=== PATIENT | female | born 1975 | race Caucasian/White ===

== ENCOUNTER 2019-07-04 08:34 | Inpatient (IN) ==
--- NOTE | 2019-06-18 12:24 | PAT Medication Instructions ---
Medication Instructions Date of Service June 18, 2019 Home Medications celecoxib [Celebrex] 200 mg PO QPM estradiol 1 patch TOPICAL 2XWK fexofenadine [Lillie Allergy] 180 mg PO QAM fluticasone propion-salmeterol [Advair Diskus] 1 inh INHALATION BID PRN fluticasone propionate [Flonase Allergy Relief] 2 spray INTRANASAL BID furosemide [Lasix] 20 mg PO QAM metoprolol succinate [Toprol XL] 25 mg PO QPM montelukast [Singulair] 25 mg PO QAM multivitamin 2 tab PO QAM omeprazole 20 mg PO BID sulfadiazine 1,500 mg PO TID Continue as directed estradiol 1 patch TOPICAL 2XWK (avoid placement over surgery site area prior to surgery) sulfadiazine 1,500 mg PO TID ASK your surgeon for instructions celecoxib [Celebrex] 200 mg PO QPM DO NOT take the morning of surgery fexofenadine [Lillie Allergy] 180 mg PO QAM furosemide [Lasix] 20 mg PO QAM montelukast [Singulair] 25 mg PO QAM multivitamin 2 tab PO QAM Take morning of surgery With a small sip of water, OTHERWISE NOTHING TO EAT OR DRINK AFTER MIDNIGHT: fluticasone propion-salmeterol [Advair Diskus] 1 inh INHALATION BID PRN (if needed) fluticasone propionate [Flonase Allergy Relief] 2 spray INTRANASAL BID omeprazole 20 mg PO BID Take evening before surgery fluticasone propion-salmeterol [Advair Diskus] 1 inh INHALATION BID PRN (if needed) fluticasone propionate [Flonase Allergy Relief] 2 spray INTRANASAL BID metoprolol succinate [Toprol XL] 25 mg PO QPM omeprazole 20 mg PO BID sulfadiazine 1,500 mg PO TID Other Notes If you have any questions please call us at [phone] or [phone] or [phone] or [phone]
--- NOTE | 2019-06-19 10:27 | Anesthesiology Consultation ---
Date of Service June 19, 2019 Assessment & Plan (1) Encounter for pre-operative examination: Chart Review Chart Review: Acceptable Risk for Surgery and Patient seen in Pre Admission Testing Teaching & Discussion Instructed NPO after midnight before surgery, except medications with 15 cc of water. Medication instructions provided according to the PAT guidelines. History Surgery Operation Date: 07/04/19 11:35 Proposed Procedures p L5-S1 Decompression Fusion, Spinal Cord Monitoring - Ari Cross DO Height/Weight Height: 5 ft 1.5 in Weight: 123.3 kg Allergies Allergy/AdvReac Type Severity Reaction Status Date / Time lisinopril Allergy Unknown Rash Verified 06/13/19 08:05 abatacept [From Orencia] AdvReac Unknown Headache Verified 06/13/19 08:05 amlodipine [From Norvasc] AdvReac Unknown legs Verified 06/13/19 08:05 swelled Medications Home Medications Medication Instructions Recorded Confirmed Last Taken celecoxib [Celebrex] 200 mg PO QPM 06/13/19 06/13/19 Unknown estradiol 1 patch TOPICAL 2XWK 06/13/19 06/13/19 Unknown fexofenadine [Lillie Allergy] 180 mg PO QAM 06/13/19 06/13/19 Unknown fluticasone propion-salmeterol 1 inh INHALATION BID PRN 06/13/19 06/13/19 Unknown [Advair Diskus] fluticasone propionate [Flonase 2 spray INTRANASAL BID 06/13/19 06/13/19 Unknown Allergy Relief] furosemide [Lasix] 20 mg PO QAM 06/13/19 06/13/19 Unknown metoprolol succinate [Toprol XL] 25 mg PO QPM 06/13/19 06/13/19 Unknown montelukast [Singulair] 10 mg PO QAM 06/13/19 06/19/19 Unknown multivitamin 2 tab PO QAM 06/13/19 06/13/19 Unknown omeprazole 20 mg PO BID 06/13/19 06/13/19 Unknown sulfasalazine 0.5 g PO BID 06/19/19 06/19/19 Unknown Past Medical History Medical History (Updated 06/20/19 @ 12:47 by Tano Ferrera) Chronic back pain NUMBNESS LEFT LEG TO FOOT Fibromyalgia GERD (gastroesophageal reflux disease) Hypertension Migraine Morbid obesity Osteoarthritis Recurrent sinus infections No issues currently. Rheumatoid arthritis SOB (shortness of breath) on exertion "OUT OF SHAPE" Temporomandibular joint disorder BILAT-WEARS BITE GUARD HS-HAS NEVER LOCKED Exercise / Class Metabolic Activity III < 4 Walking/Shop/Light housework (+SOB with 1 FOS due to obesity/deconditioning, denies any chest pain) Past Family History Family History Father Family history of diabetes mellitus Past Surgical History Surgical History History of hysterectomy TOTAL History of tonsillectomy Past Anesthesia History No Hx of Anesthesia Complications and No Family Hx of Anesthesia Complications History of PONV No Hx of PONV and No Hx of Motion Sickness Social History Smoking Status: Former smoker Do You Dip or Chew Tobacco: No Smoking End Date: QUIT 1996 Hx Alcohol Use: No Hx Substance Use: No Review of Systems Pt denies any recent chest pain, shortness of breath, palpitations, cough, fever or URI. Physical Exam Vital Signs BP: 137/91 (pt is nervous, currently having significant back pain, checks at home and usually ~ 120/80's) P: 79bpm SPO2: 94% RA T: 98.4 F R: 16 Constitutional + morbidly obese ENMT Mouth: no dental restorations, no chipped teeth and no loose teeth Thyromental Distance: > or= 3.5 Finger Breadths (4) Mallampati Class: III Neck + thick neck (very); neck extension not limited Respiratory normal respiratory effort Auscultation: lungs clear to auscultation bilaterally Cardiovascular Rate/Rhythm: regular rate and regular rhythm Heart Sounds: no murmur Testing Laboratory Results 06/19/19 10:48 06/19/19 10:48 PT 10.2 Seconds (9.0-12.0) 06/19/19 10:48 INR 1.0 (0.9-1.1) 06/19/19 10:48 APTT 29.7 Seconds (21.0-31.0) 06/19/19 10:48 Urine Color Dark Yellow 06/19/19 10:48 Urine Appearance Clear (Clear) 06/19/19 10:48 Urine pH 6.5 (4.5-7.5) 06/19/19 10:48 Ur Specific [place] 1.029 (1.000-1.030) 06/19/19 10:48 Urine Protein Negative (Negative) 06/19/19 10:48 Urine Glucose (UA) Negative (Negative) 06/19/19 10:48 Urine Ketones Negative (Negative) 06/19/19 10:48 Urine Nitrite Negative (Negative) 06/19/19 10:48 Ur Leukocyte Esterase Negative (Negative) 06/19/19 10:48 Blood Type O Negative 06/19/19 10:48 Antibody Screen NEGATIVE 06/19/19 10:48 Electrocardiogram Date: 06/19/19 Findings: + NSR @ (77bpm) Chest X-Ray Date: 06/19/19 Findings: + NAD Low lung volumes. Cervical Spine Date: 06/19/19 IMPRESSION: Alignment remains intact throughout flexion and extension.
[2019-06-19 11:18] LABS: Appearance Urine Clear (Clear); Bilirubin Urine Negative (Negative); Blood Urine Negative (Negative); Color Urine Dark Yellow; Glucose Urine UA Negative (Negative); Ketones Urine Negative (Negative); Leukocyte Esterase Urine Negative (Negative); Nitrite Urine Negative (Negative); Protein Urine Negative (Negative); Specific Gravity Urine 1.029 (1.000-1.030); Urobilinogen Urine Negative (Negative); pH Urine 6.5 (4.5-7.5)
[2019-06-19 11:19] LABS: Basophils # (auto) 0.03 K/uL (0-0.2); Basophils % (auto) 0.3 %; Eosinophils # (auto) 0.18 K/uL (0-0.5); Eosinophils % (auto) 2.1 %; Hematocrit (blood only) 42.1 % (37-47); Hemoglobin 14.4 g/dL (12.0-16.0); Immature Granulocytes # (auto) 0.04 K/uL (0.00-0.02); Immature Granulocytes % (auto) 0.5 %; Lymphocytes # (auto) 2.89 K/uL (1.2-3.4); Lymphocytes % (auto) 33.1 %; Mean Corpuscular Hemoglobin 29.7 pg (25-34); Mean Corpuscular Hgb Conc 34.2 g/dL (32-36); Mean Corpuscular Volume 86.8 fL (80-100); Monocytes % (auto) 6.9 %; Neutrophils # (auto) 4.99 K/uL (1.4-6.5); Neutrophils % (auto) 57.1 %; Platelet Count 248 K/uL (130-400); RDW Coefficient of Variation 13.3 % (11.5-14.5); RDW Standard Deviation 42.3 fL (36.4-46.3); Red Blood Count 4.85 M/uL (4.2-5.4); White Blood Count 8.73 K/uL (4.8-10.8)
--- NOTE | 2019-06-19 11:22 | XRay Report ---
TWO VIEW CHEST CLINICAL HISTORY: Preoperative examination. FINDINGS: PA and lateral chest radiographs are obtained. No prior studies are available for compariso n at the time of dictation. The cardiomediastinal silhouette is unremarkable. There are low lung vol umes with bibasilar atelectasis. No airspace consolidation or pleural effusion is identified. There i s no pneumothorax. The skeletal structures appear osteopenic. Mild degenerative change is seen in the spine and there is hyperkyphosis at the thoracolumbar junction. The bony thorax appears intact. IMPRESSION: Low lung volumes with no active disease in the chest. ACT 112: Negative or not required by law. Electronically signed by: Josesito Farias M.D. 06/19/2019 11:21 AM
[2019-06-19 11:27] LABS: Partial Thromboplastin Ratio 1.1; Partial Thromboplastin Time 29.7 Seconds (21.0-31.0); Prothrombin Time 10.2 Seconds (9.0-12.0)
--- NOTE | 2019-06-19 12:00 | XRay Report ---
XR cervical spine 2 or 3V CLINICAL HISTORY: pre-op RA; lateral neutral/flexion/extension COMPARISON STUDY: None. FINDINGS: Lateral, flexion, extension views of the cervical spine were submitted for review. The cerv ical spine is visualized from C1 through the superior endplate of T1. Alignment and curvature are int act. No fracture or subluxation. Mild disc space narrowing at C5-C6 with small endplate osteophytes. The alignment remains intact throughout flexion and extension. Prevertebral soft tissues and the C1-C 2 interval are maintained. IMPRESSION: Alignment remains intact throughout flexion and extension. ACT 112: Negative or not required by law. Electronically signed by: Fabien Kwong M.D. 06/19/2019 11:59 AM
[2019-06-19 12:25] LABS: BUN Creatinine Ratio 22.2 (10-20); Calcium 8.9 mg/dl (8.5-10.1); Creatinine Clr Calc Pharmacy 154.3 ml/min; Est GFR (Non-African American) 113.1; Potassium 4.5 mmol/L (3.5-5.1)
--- NOTE | 2019-06-19 21:56 | Electrocardiogram Report ---
Test Reason : Blood Pressure : / mmHG Vent. Rate : 077 BPM Atrial Rate : 077 BPM P-R Int : 140 ms QRS Dur : 088 ms QT Int : 400 ms P-R-T Axes : 045 060 036 degrees QTc Int : 452 ms Normal sinus rhythm Normal ECG No previous ECGs available Confirmed by Silver Lee ([id number]) on 06/19/2019 9:55:48 PM Referred By: Ari Cross Confirmed By:Silver Lee
[~2019-07-04 08:34] MED LIST: ACETAMINOPHEN 500 MG TAB PO SCH; CEFAZOLIN 3000MG 72.5 ML IV SCH; CeleBREX 200 MG CAP PO SCH; GABAPENTIN 900 MG DOSE PO SCH; LR 15ML/HR IV SCH
[2019-07-04] MEDS ORDERED: MIDAZOLAM HCL 1 MG/ML 2ML VIAL ONE (09:35)
[2019-07-04] MEDS ORDERED: fentaNYL citrate 100 MCG/2 ML VIAL ONE (09:35)
[2019-07-04] MEDS ORDERED: HYDROmorphone INJ 2 MG/ML SYR/VIAL ONE (09:36)
[2019-07-04] MEDS ORDERED: ONDANSETRON INJ 2 MG/ML 2 ML VIAL ONE ×2 (09:36→14:06)
[2019-07-04] MEDS ORDERED: PROPOFOL IV EMULSION 10 MG/ML 20 ML VIAL IV ONE ×7 (09:36→09:42)
[2019-07-04] MEDS ORDERED: LIDOCAINE HCL 2% 2 ML VIAL/AMP(20MG/ML) INFIL ONE (09:36)
[2019-07-04] MEDS ORDERED: LARYING-O-JET KIT (LTA) ONE (09:36)
[2019-07-04] MEDS ORDERED: DEXAMETHASONE SOD INJ 4 MG/ML VIAL ONE (09:36)
[2019-07-04] MEDS ORDERED: ONDANSETRON INJ 2 MG/ML 2 ML VIAL IV PRN ×2 (09:58→14:25)
[2019-07-04] MEDS ORDERED: ePHEDrine sulfate 50 MG/ML AMP IV PRN (09:58)
[2019-07-04] MEDS ORDERED: fentaNYL citrate 100 MCG/2 ML VIAL IV PRN (09:58)
[2019-07-04] MEDS ORDERED: HYDROmorphone INJ 1 MG/ML SYRINGE IV PRN ×2 (09:58→14:25)
[2019-07-04] MEDS ORDERED: ATROPINE SULFATE 0.1 MG/ML 10ML SYR IV PRN (09:58)
--- NOTE | 2019-07-04 10:27 | History & Physical Bridge Note ---
Date of Service July 04, 2019 History & Physical Bridge Note I have examined the patient, reviewed the History & Physical and in the interval since the performance of the History & Physical I have noted the following changes of clinical significance: no changes noted
--- NOTE | 2019-07-04 10:29 | History & Physical Report ---
Date of Service July 04, 2019 Assessment & Plan (1) Neurogenic claudication due to lumbar spinal stenosis: Lumbar spinal stenosis L5-S1 decompression fusion Present on Admission?: Yes History of Present Illness Chief Complaint: Back and bilateral leg pain Primary Care Provider: Tom Whitlock This is a 43-year-old female that presents with above-mentioned diagnosis after failing extensive course of nonoperative care is here for surgical intervention. Allergies Allergy/AdvReac Type Severity Reaction Status Date / Time lisinopril Allergy Unknown Rash Verified 07/04/19 09:08 abatacept [From Orencia] AdvReac Unknown Headache Verified 07/04/19 09:08 amlodipine [From Norvasc] AdvReac Unknown legs Verified 07/04/19 09:08 swelled Home Medications Home Medications Medication Instructions Recorded Confirmed Type celecoxib [Celebrex] 200 mg PO QPM 06/13/19 07/04/19 History estradiol 1 patch TOPICAL 2XWK 06/13/19 07/04/19 History fexofenadine [Lillie Allergy] 180 mg PO QAM 06/13/19 07/04/19 History fluticasone propion-salmeterol 1 inh INHALATION BID PRN 06/13/19 07/04/19 History [Advair Diskus] fluticasone propionate [Flonase 2 spray INTRANASAL BID 06/13/19 07/04/19 History Allergy Relief] furosemide [Lasix] 20 mg PO QAM 06/13/19 07/04/19 History metoprolol succinate [Toprol XL] 25 mg PO QPM 06/13/19 07/04/19 History montelukast [Singulair] 10 mg PO QAM 06/13/19 07/04/19 History multivitamin 2 tab PO QAM 06/13/19 07/04/19 History omeprazole 20 mg PO BID 06/13/19 07/04/19 History sulfasalazine 0.5 g PO BID 06/19/19 07/04/19 History Past Med/Surg History Family History Father Family history of diabetes mellitus Social History Preferred Language: [place] Leonean Communication Ability: Effective Quoter Required: No Beliefs That Will Affect Care: None Current Living Situation: Spouse Other Information That Helps Us Care for You: No Feels Safe at Home: Yes Safety Concerns: Feels Safe At This Time Smoking Status: Former smoker Do You Dip or Chew Tobacco: No ; Smoking End Lamin e: QUIT 1996 ; Second Hand Exposure: Yes (IN THE PAST) ; Hx Alcohol Use: No Hx Substance Use: No Physical Exam Physical Exam: Patient is alert and oriented neurologically intact. Results & Data Vital Signs (Past 12 Hours) Vital Signs Temp Pulse Resp BP Pulse Ox 07/04/19 09:13 36.7 C 100 H 20 182/101 H 96
[2019-07-04] MEDS ORDERED: BUPIVACAINE/EPINEPHRINE 0.5% MPF 1:200,000 10 ML VIAL ONE (10:40)
[2019-07-04] MEDS ORDERED: BACITRACIN INJ 50,000 UNIT VIAL ONE (10:40)
[2019-07-04] MEDS ORDERED: PHENYLEPHRINE 100MCG/ML 5ML SYR ONE (11:48)
[2019-07-04] MEDS ORDERED: ePHEDrine sulfate 50 MG/ML AMP ONE (11:48)
[2019-07-04] MEDS ORDERED: FLOSEAL HEMOSTATIC MATRIX 10ML TOP ONE (12:22)
--- NOTE | 2019-07-04 12:35 | Operative Report ---
Post Operative Report Pre & Post Diagnosis Operation Date: 07/04/19 11:15 Pre-Op Diagnosis: Neurogenic claudication due to lumbar spinal stenosis L5-S1 Spondylolisthesis L5-S1 morbid obesity Post-Op Diagnosis: same I identified the patient and participated in the time-out.: Yes Procedure Operation Date: 07/04/19 11:15 Actual Procedures 1. Lumbar decompression with bilateral medial facetectomies and foraminotomies L5-S1. #2 posterior spinal fusion L5-S1. #3 posterior spinal fusion L5-S1. #4 interbody fusion L5-S1. #5 placement titanium cage 10 x 22 mm at L5-S1. #6 placement locally harvested morselized autograft in the posterior lateral gutters. #7 placement infuse collagen sponge, master graft in the posterior lateral gutters and ostial amp and interbody space. Surgeon Ari Cross, [facility] Edelmira Colin Estimated Blood Loss 150 Findings See Below Fluids Patient is 5 foot 1 inches tall weighing over 123 kg with a BMI in excess of 50. The patient's body habitus did add significant technical difficulty throughout the procedure both with patient positioning and the actual surgical procedure itself requiring her deepest retractors and longest instruments in order to perform her procedure. However obesity will put her at marked increased risk for postoperative complication and increased need for follow-up. This added at least 50% increase to the operative time. Specimens None Indications This is a 43-year-old female who presents above-mentioned diagnosis after failing since course of nonoperative care is here for the above-mentioned procedure. Description of Procedure Patient was met with identified informed consent obtained. Patient was then taken to the operative suite underwent an patient placed in prone position Smith on top Girish frame. All bony prominences well-padded eyes inspected to ensure no external pressure placed upon the. This point the lumbar spine was prepped and draped in also fashion. Sharp dissection with the assistance of Bovie cautery performed down to and exposing the lamina and transverse processes of L5 and S1 level bilaterally. Obvious bilateral pars defect identified. A complete laminectomy was then performed including bilateral medial facetectomies and foraminotomies addressing all stenosis. Pedicle screws were then placed in L5 and S1 levels bilaterally with assistance of fluoroscopy backslash matthew placed. By way of a transforaminal approach on the left the discectomy was performed endplates curetted to subcortical bleeding bone and a 10 x 22 mm titanium cage filled with osteo-bone graft tapped in position. The rods were then compressed locked in final position bilaterally. The transverse processes of L5 and the sacral ala were then burred to subcortical bleeding bone. Infuse collagen sponge master graft local autograft was then placed in the posterior lateral gutters. 15 round KISHORE drain inserted. The incision was then closed with 1 Vicryl fascia 2-0 Vicryl subcutaneously and 4 Monocryl for final skin closure. Steri-Strip sterile dressings placed. Patient will continue PACU stable condition. Please note Edelmira Colin present at the entire procedure involved the patient positioning complex portions of the surgery and final skin closure. Lastly spinal cord monitoring was utilized that the procedure no changes noted. I attest to the content of the Intraoperative Record and any orders documented t herein. Any exceptions are noted below.
--- NOTE | 2019-07-04 12:59 | Fluoroscopy Report ---
FL lumbar spine 2-3V CLINICAL HISTORY: L5-S1 DECOMP/FUSION COMPARISON STUDY: None. FLUOROSCOPY TIME: 23.7 seconds. FLUOROSCOPIC IMAGES: 2 FINDINGS: These images demonstrate an L5-S1 discectomy with interbody spacer placement. There is a po sterior decompression. There are bilateral pedicle screws at the L5 and S1 levels with interconnectin g rods. Hardware is intact. There are no unexpected radiopaque foreign bodies. IMPRESSION: Fluoroscopic images demonstrating an L5-S1 discectomy, posterior decompression and bilat eral pedicle screw fusion. ACT 112: Negative or not required by law. Electronically signed by: Palomo Sheppard M.D. 07/04/2019 12:57 PM
--- NOTE | 2019-07-04 13:35 | Anesthesiology Progress Note ---
Date of Service July 04, 2019 Anesthesia Post Procedure Vital Signs Vital Signs: Temp Pulse Resp BP Pulse Ox 07/04/19 13:30 104 H 12 147/92 H 94 07/04/19 13:20 119 H 14 145/90 H 99 07/04/19 13:10 109 H 13 116/94 91 07/04/19 13:01 97.3 F L 126 H 14 129/76 94 07/04/19 09:13 98.1 F 100 H 20 182/101 H 96 Pain Intensity Bilateral Head: Pain Intensity: 8 Lower Back: Pain Intensity: 0 Transfer of Care Handoff Completed per policy Notes Mental Status: alert / awake / arousable and participated in evaluation Patient Amnestic to Procedure: Yes Nausea / Vomiting: adequately controlled Pain: adequately controlled Airway Patency, RR, SpO2: stable & adequate BP & HR: stable & adequate Hydration State: stable & adequate Anesthetic Complications: no major complications apparent and Pt Satisfied with anesthetic care
[2019-07-04] MEDS ORDERED: ONDANSETRON INJ 2 MG/ML 2 ML VIAL IV STA (14:07)
[2019-07-04] MEDS ORDERED: ONDANSETRON 4 MG OD TAB PO PRN (14:25)
[2019-07-04] MEDS ORDERED: bisacodyL 10 MG SUPP PR PRN (14:25)
[2019-07-04] MEDS ORDERED: DO NOT ADMINISTER FLU VACCINE PRN (14:25)
[2019-07-04] MEDS ORDERED: SOD PHOSPHATE/SOD BIPHOSPHATE ENEMA 132 ML BTL PR PRN (14:25)
[2019-07-04] MEDS ORDERED: ALUMINUM/MAGNESIUM SUSP 30 ML UDC PO PRN (14:25)
[2019-07-04] MEDS ORDERED: ACETAMINOPHEN 1,000 MG/100 ML VIAL IV PRN (14:25)
[2019-07-04] MEDS ORDERED: HYDROmorphone INJ 0.5 MG/0.5 ML SYR IV PRN (14:25)
[2019-07-04] MEDS ORDERED: PROMETHAZINE HCL 12.5 MG in SODIUM CHLORIDE 0.9% 50 ML IV PRN (14:25)
[2019-07-04] MEDS ORDERED: LORazepam 0.5 MG/1 ML VIAL IV PRN (14:25)
[2019-07-04] MEDS ORDERED: FAMOTIDINE 20 MG TAB PO PRN (14:25)
[2019-07-04] MEDS ORDERED: NALOXONE HCL 0.4 MG/1 ML VIAL/CARP IV PRN (14:25)
[2019-07-04] MEDS ORDERED: LORazepam 0.5 MG TAB PO PRN (14:25)
[2019-07-04] MEDS ORDERED: METOCLOPRAMIDE HCL INJ 5 MG/ML 2 ML VIAL IV PRN (14:25)
[2019-07-04] MEDS ORDERED: DO NOT ADMINISTER PNEUMOCOCCAL VACCINE PRN (14:25)
[2019-07-04] MEDS ORDERED: MAGNESIUM HYDROXIDE SUSP 30 ML UDC PO PRN (14:25)
[2019-07-04] MEDS: SODIUM CHLORIDE 0.9% 1000ML 1,000 ML IV SCH ×2 (14:30→21:52)
[2019-07-04] MEDS ORDERED: FLUTICASONE/VILANTEROL 200/25MCG 14 PUFFS/INHALER INH PRN (15:00)
[2019-07-04] MEDS ORDERED: NEOSTIGMINE METHYLSULFATE 1 MG/ML 10ML VIAL ONE (15:18)
[2019-07-04] MEDS ORDERED: ROCURONIUM BROMIDE 10 MG/ML 5 ML VIAL ONE (15:18)
[2019-07-04] MEDS ORDERED: GLYCOPYRROLATE 0.2 MG/ML VIAL ONE (15:18)
[2019-07-04] MEDS: KETOROLAC TROMETHAMINE 15 MG/ML VIAL IV SCH ×2 (16:14→21:53)
--- NOTE | 2019-07-04 17:01 | Hospitalist Consultation ---
Date of Consultation July 04, 2019 Assessment & Plan (1) Rheumatoid arthritis: Rheumatoid arthritis is controlled with sulfasalazine 0.5 g p.o. twice daily and Celebrex 200 mg p.o. every afternoon. Continue monitoring. Patient denies flare. Present on Admission?: Yes (2) Morbid obesity: Patient advised to join a program or implement lifestyle changes in effort to lose weight, included but not limited to diet, exercises, meditation etc. Present on Admission?: Yes (3) SOB (shortness of breath) on exertion: Patient reports that she is not usually short of breath. She contributes shortness of breath to her being overweight and morbidly obese. She reports that she does not use oxygen at home nor CPAP. Would recommend sleep study once when patient is discharged home. Present on Admission?: Yes (4) Fibromyalgia: Stable now continue sulfasalazine and Celebrex. Present on Admission?: Yes (5) GERD (gastroesophageal reflux disease): Stable, continue omeprazole 20 mg p.o. twice daily. Present on Admission?: Yes (6) Hypertension: Well-controlled. Continue Toprol X 25 mg p.o. every afternoon, furosemide 20 mg p.o. every morning, multivitamins 2 tablets p.o. every morning. Will check for A1c, TSH, lipid panel. Present on Admission?: Yes (7) Seasonal allergies: Continue Lillie 180 mg p.o. every morning, Flonase 2 sprays intranasally twice daily. Present on Admission?: Yes (8) Recurrent sinus infections: As the above Present on Admission?: Yes (9) Neurogenic claudication due to lumbar spinal stenosis: Lumbar spinal stenosis L5-S1 decompression fusion (10) Asthma: Continue Advair Diskus 1 inhalation twice daily as needed, montelukast 10 mg p.o. every morning. Present on Admission?: Yes History of Present Illness Reason for Consultation: Medical management Attending Physician: Ari Cross DO History of Present Illness The patient is a 44 years old female with past medical history of morbid obesity, neurogenic claudication due to lumbar spine stenosis s/p today Lumbar decompression with bilateral medial facetectomies and foraminotomies L5-S1. #2 posterior spinal fusion L5-S1. #3 posterior spinal fusion L5-S1. #4 interbody fusion L5-S1. #5 placement titanium cage 10 x 22 mm at L5-S1. #6 placement locally harvested morselized autograft in the posterior lateral gutters. #7 placement infuse collagen sponge, master graft in the posterior lateral gutters and ostial amp and interbody space. Patient tolerated procedure well but after the procedure she is requiring 3.5 L of oxygen. Patient denies fever, chills, chest pain, shortness of breath, abdominal pain, frequency, urgency. Labs are reviewed: WBC is 8.73, hemoglobin 14.4, hematocrit 42.1, platelets 248, PT 10.2, INR 1, APTT 29.7, sodium 139, potassium 4.5, chloride 106, carbon dioxide 29, anion gap 4, BUN 13, creatinine 0.59, GFR 113.1, glucose 84, calcium 8.9. Urine all normal. The medicine is consulted for medical management of patient's comorbidities. Allergies Allergy/AdvReac Type Severity Reaction Status Date / Time lisinopril Allergy Unknown Rash Verified 07/04/19 09:08 abatacept [From Orencia] AdvReac Unknown Headache Verified 07/04/19 09:08 amlodipine [From Norvasc] AdvReac Unknown legs Verified 07/04/19 09:08 swelled Home Medications Home Medications Medication Instructions Recorded Confirmed Type celecoxib [Celebrex] 200 mg PO QPM 06/13/19 07/04/19 History estradiol 1 patch TOPICAL 2XWK 06/13/19 07/04/19 History fexofenadine [Lillie Allergy] 180 mg PO QAM 06/13/19 07/04/19 History fluticasone propion-salmeterol 1 inh INHALATION BID PRN 06/13/19 07/04/19 History [Advair Diskus] fluticasone propionate [Flonase 2 spray INTRANASAL BID 06/13/19 07/04/19 History Allergy Relief] furosemide [Lasix] 20 mg PO QAM 06/13/19 07/04/19 History metoprolol succinate [Toprol XL] 25 mg PO QPM 06/13/19 07/04/19 History montelukast [Singulair] 10 mg PO QAM 06/13/19 07/04/19 History multivitamin 2 tab PO QAM 06/13/19 07/04/19 History omeprazole 20 mg PO BID 06/13/19 07/04/19 History sulfasalazine 0.5 g PO BID 06/19/19 07/04/19 History Patient History Medical History Chronic back pain NUMBNESS LEFT LEG TO FOOT Fibromyalgia GERD (gastroesophageal reflux disease) Hypertension Migraine Morbid obesity Osteoarthritis Recurrent sinus infections No issues currently. Rheumatoid arthritis SOB (shortness of breath) on exertion "OUT OF SHAPE" Temporomandibular joint disorder BILAT-WEARS BITE GUARD HS-HAS NEVER LOCKED Surgical History History of hysterectomy TOTAL History of tonsillectomy Family History Father Family history of diabetes mellitus Social History Preferred Language: Indian Communication Ability: Effective Tobacco Stripper Hand Required: No Beliefs That Will Affect Care: None Current Living Situation: Spouse Other Information That Helps Us Care for You: No Feels Safe at Home: Yes Safety Concerns: Feels Safe At This Time Smoking Status: Former smoker Do You Dip or Chew Tobacco: No ; Smoking End Date: QUIT 1996 ; Second Hand Exposure: Yes (IN THE PAST) ; Hx Alcohol Use: No Hx Substance Use: No Review of Systems Review of Systems: All systems reviewed & are unremarkable except as noted in HPI & below Physical Exam Constitutional: + morbidly obese ENMT: Mouth: no dentition abnormality Mallampati Class: III Neck: normal visual inspection and + thick neck (very); neck extension not limited Respiratory: normal respiratory effort Auscultation: lungs clear to auscultation bilaterally Cardiovascular: Rate/Rhythm: regular rate and regular rhythm Heart Sounds: no murmur Musculoskeletal: no cyanosis or clubbing, extremities motor strength 5/5 Skin: no rashes, warm and dry Neurologic: patellar DTR's 2+ bilat, sensation intact Psychiatric: A+Ox3, euthymic affect Lymphatic: no cervical or axillary lymphadenopathy Results & Data ([facility]) Vital Signs (Past 12 Hours) Vital Signs Temp Pulse Pulse Resp BP Pulse Ox 07/04/19 16:20 36.3 C L 126 H 18 128/81 93 07/04/19 15:17 36.7 C 104 H 16 127/82 91 07/04/19 14:40 116 H 14 133/80 91 07/04/19 14:20 36.4 C L 125 H 14 133/85 97 07/04/19 13:55 106 H 12 135/87 92 07/04/19 13:50 102 H 12 149/89 H 97 07/04/19 13:40 36.9 C 104 H 12 128/94 93 07/04/19 13:30 104 H 12 147/92 H 94 07/04/19 13:20 119 H 14 145/90 H 99 07/04/19 13:10 109 H 13 116/94 91 07/04/19 13:01 36.3 C L 126 H 14 129/76 94 07/04/19 09:13 36.7 C 100 H 20 182/101 H 96 PG Care Time/CCT Total # of Minutes Spent Total Time Spent with Patient: Total time spent is greater than 50% in coordination of care (as documented) at patient's floor/unit and/or counseling patient: Coding Level of Care Code 55298 Inpt Consult Level 5 Diagnoses Rheumatoid arthritis M06.9 Morbid obesity E66.01 SOB (shortness of breath) on exertion R06.02 Fibromyalgia M79.7 GERD (gastroesophageal reflux disease) K21.9 Hypertension I10 Seasonal allergies J30.2 Recurrent sinus infections J32.9 Neurogenic claudication due to lumbar spinal stenosis M48.062 Asthma J45.909
[2019-07-04] MEDS: CEFAZOLIN 2000MG 2,000 MG/15 ML SYR IV SCH (19:48)
[2019-07-04 20:03] LABS: D Dimer 4090 ug/L FEU (0-500)
[2019-07-04] MEDS ORDERED: OPTIRAY 320 125ml IV PRN (20:28)
[2019-07-04] MEDS ORDERED: sulfaSALAzine 500 MG TABLET PO SCH (21:00)
--- NOTE | 2019-07-04 21:00 | CT Scan Report ---
CHEST CTA for PULMONARY ARTERIES CT DOSE: 903.69 mGy.cm HISTORY: Shortness of breath. TECHNIQUE: Multiaxial CT images of the chest were performed following the intravenous administration of contrast to evaluate the pulmonary arteries. Maximal intensity projection images were also obtaine d. A dose lowering technique was utilized adhering to the principles of ALARA. COMPARISON STUDY: None. FINDINGS: Normal caliber thoracic aorta with no evidence for dissection. No filling defects within th e pulmonary arteries to suggest pulmonary embolus. No pleural or pericardial effusions. The heart is normal in size. Hepatic steatosis. There are low lung volumes. The visualized spleen is unremarkable. Mildly dilated gas and fluid-filled esophagus. No mediastinal or hilar lymphadenopathy. No fractures within the visualized osseous structures. No pneumothorax. The central airways are patent. There is mild respiratory motion artifact. Groundglass and linear densities within the lung bases and lower lo bes posteriorly favor atelectasis/dependent change. Otherwise, no focal lung consolidations to sugges t pneumonia. IMPRESSION: 1. No evidence for pulmonary embolus. 2. Low lung volumes. 3. Groundglass and linear densities within the lung bases and lower lobes posteriorly favor atelectas is/dependent change. 4. Hepatic steatosis. 5. Mildly dilated gas and fluid-filled esophagus. ACT 112: Negative or not required by law. Electronically signed by: Fabien Kwong M.D. 07/04/2019 8:59 PM
[2019-07-04] MEDS: ACETAMINOPHEN 500 MG TAB PO PRN (21:07)
[2019-07-04] MEDS: DOCUSATE SODIUM/SENNA 50/8.6MG TAB PO SCH (21:07)
[2019-07-04] MEDS: FLUTICASONE PROPIONATE NA SPR 16 GM BTL SCH (21:08)
[2019-07-04] MEDS: PANTOprazole 40 MG TAB PO SCH (21:08)
[2019-07-04] MEDS: METOPROLOL SUCC 25MG EXT REL TAB PO SCH (21:08)
[2019-07-05] MEDS: CEFAZOLIN 2000MG 2,000 MG/15 ML SYR IV SCH (03:39)
[2019-07-05] MEDS: KETOROLAC TROMETHAMINE 15 MG/ML VIAL IV SCH ×2 (03:39→08:52)
[2019-07-05] MEDS: POLYETHYLENE (MIRALAX) 17 GM PACK PO SCH ×2 (04:28→11:32)
[2019-07-05] MEDS: SODIUM CHLORIDE 0.9% 1000ML 1,000 ML IV SCH (05:23)
[2019-07-05 06:05] LABS: Basophils # (auto) 0.01 K/uL (0-0.2); Basophils % (auto) 0.1 %; Hemoglobin 12.2 g/dL (12.0-16.0); Immature Granulocytes % (auto) 0.5 %; Lymphocytes # (auto) 1.32 K/uL (1.2-3.4); Lymphocytes % (auto) 6.6 %; Mean Corpuscular Hemoglobin 29.5 pg (25-34); Mean Corpuscular Hgb Conc 33.9 g/dL (32-36); Mean Platelet Volume 10.1 fL (7.4-10.4); Monocytes # (auto) 1.07 K/uL (0.11-0.59); Monocytes % (auto) 5.4 %; Neutrophils # (auto) 17.36 K/uL (1.4-6.5); Neutrophils % (auto) 87.4 %; Platelet Count 225 K/uL (130-400); RDW Coefficient of Variation 13.5 % (11.5-14.5); Red Blood Count 4.14 M/uL (4.2-5.4); White Blood Count 19.86 K/uL (4.8-10.8)
[2019-07-05 06:30] LABS: Estimated Average Glucose 128 mg/dl; Hemoglobin A1C 6.1 % (4.5-5.6)
[2019-07-05 06:42] LABS: BUN Creatinine Ratio 17.1 (10-20); Calcium 7.9 mg/dl (8.5-10.1); Creatinine Clr Calc Pharmacy 105.9 ml/min; Est GFR (African American) 96.6; Est GFR (Non-African American) 83.3; Potassium 4.2 mmol/L (3.5-5.1)
[2019-07-05 06:53] LABS: Thyroid Stimulating Hormone 0.764 uIu/ml (0.300-4.500)
--- NOTE | 2019-07-05 07:50 | Orthopedic Progress Note ---
Date of Service July 05, 2019 Assessment & Plan (1) Neurogenic claudication due to lumbar spinal stenosis: At this time we will continue physical therapy as tolerated monitor KISHORE output. Appreciate medical assistance but thus far she appears to be stable. Hopefully discharge home the next few days. Present on Admission?: Yes Admission and Anticipated Discharge Date Admission Date: July 04, 2019 Subjective Back pain controlled leg symptoms markedly improved. She denies any nausea vomiting or chest pain. Physical Exam Physical Exam: On exam she is up and ambulating. She is good strength testing. Appears comfortable. Results & Data ([facility]) Vital Signs (Past 12 Hours) Vital Signs Temp Pulse Pulse Resp BP BP Pulse Ox 07/05/19 07:33 36.9 C 114 H 18 130/78 95 07/05/19 03:15 36.6 C 120 H 18 122/61 94 07/04/19 22:23 36.4 C L 119 H 16 135/67 90 07/04/19 21:04 36.8 C 123 H 16 127/77 93
[2019-07-05] MEDS: ACETAMINOPHEN 500 MG TAB PO PRN (07:51)
[2019-07-05] MEDS: FLUTICASONE PROPIONATE NA SPR 16 GM BTL SCH ×2 (08:49→21:08)
[2019-07-05] MEDS: PANTOprazole 40 MG TAB PO SCH ×2 (08:50→21:08)
[2019-07-05] MEDS: MULTIVITAMIN TAB PO SCH (08:50)
[2019-07-05] MEDS: MONTELUKAST SODIUM 10 MG TABLET PO SCH (08:50)
[2019-07-05] MEDS: FEXOFENADINE HCL 180 MG TAB PO SCH (08:50)
[2019-07-05] MEDS: sulfaSALAzine 500 MG TABLET PO SCH ×2 (08:51→21:09)
[2019-07-05] MEDS: FUROSEMIDE 20 MG TAB PO SCH (08:51)
--- NOTE | 2019-07-05 10:40 | Anesthesiology Progress Note ---
Date of Service July 05, 2019 Anesthesia Post Procedure Vital Signs Vital Signs: Temp Pulse Pulse Pulse Resp BP BP 07/05/19 07:33 36.9 C 114 H 18 130/78 07/05/19 03:15 36.6 C 120 H 18 122/61 07/04/19 22:23 36.4 C L 119 H 16 135/67 07/04/19 21:04 36.8 C 123 H 16 127/77 07/04/19 17:51 07/04/19 17:25 36.6 C 122 H 16 136/83 07/04/19 16:20 36.3 C L 126 H 18 128/81 07/04/19 15:17 36.7 C 104 H 16 127/82 07/04/19 14:40 116 H 14 133/80 07/04/19 14:20 36.4 C L 125 H 14 133/85 07/04/19 13:55 106 H 12 135/87 07/04/19 13:50 102 H 12 149/89 H 07/04/19 13:40 36.9 C 104 H 12 128/94 07/04/19 13:30 104 H 12 147/92 H 07/04/19 13:20 119 H 14 145/90 H 07/04/19 13:10 109 H 13 116/94 07/04/19 13:01 36.3 C L 126 H 14 129/76 Pulse Ox 07/05/19 07:33 95 07/05/19 03:15 94 07/04/19 22:23 90 07/04/19 21:04 93 07/04/19 17:51 92 07/04/19 17:25 92 07/04/19 16:20 93 07/04/19 15:17 91 07/04/19 14:40 91 07/04/19 14:20 97 07/04/19 13:55 92 07/04/19 13:50 97 07/04/19 13:40 93 07/04/19 13:30 94 07/04/19 13:20 99 07/04/19 13:10 91 07/04/19 13:01 94 Pain Intensity Bilateral Head: Pain Intensity: 8 Lower Back: Pain Intensity: 4 Notes Mental Status: alert / awake / arousable Patient Amnestic to Procedure: Yes Nausea / Vomiting: adequately controlled Pain: adequately controlled Airway Patency, RR, SpO2: stable & adequate BP & HR: stable & adequate Hydration State: stable & adequate Anesthetic Complications: no major complications apparent and Pt Satisfied with anesthetic care
[2019-07-05] MEDS: TRAMADOL HCL 50 MG TABLET PO PRN ×3 (12:17→22:48)
--- NOTE | 2019-07-05 16:38 | Hospitalist Progress Note ---
Date of Service July 05, 2019 Assessment & Plan (1) Neurogenic claudication due to lumbar spinal stenosis: - Lumbar spinal stenosis L5-S1 decompression/fusion on 07/03 - Doing well postoperatively; pain control/bowel regimen - Surgical management per primary service (2) Sinus tachycardia: - STABLE; Asymptomatic - Given lack of symptoms it is possibly she is mildly tachy at home too unless she checks her HR - EKG reveals sinus tach - no CP or SOB currently; CTA R/Od PE - She did have intraoperative steroids so maybe part of this? stress-related? pain response? - No signs to suggest infection; BP is stable - does not appear overtly dry to suggest hypovolemia response - She did not miss any metoprolol so not a rebound tachycardia - She has not been wearing her estradiol patch due to surgery - possibly some menopausal symptoms causing HR? - TSH WNL; Hgb not anemic currently - No intervention is warranted at this time, will continue to monitor (3) Rheumatoid arthritis: - Rheumatoid arthritis is controlled with sulfasalazine 1500 mg BID and Celebrex 200 mg PM - No current exacerbation - has a Prednisone pack prescribed by her provider to take post-D/C if she would start to exacerbate (4) SOB (shortness of breath) on exertion: - No complaints of SOB today - CTA R/O PE - She does have low air volumes and states she takes shallow breaths - could be contributing; encourage incentive spirometer - Oxygenation is appropriate; likely has hypoventilation syndrome - could consider outpatient sleepy study (5) GERD (gastroesophageal reflux disease): - Continue PPI (6) Hypertension: - STABLE - Continue Toprol XL 25 mg daily and Lasix 20 mg daily (7) Seasonal allergies: - Continue Lillie 180 mg daily, Flonase 2 sprays intranasally twice daily. (8) Recurrent sinus infections: As the above; no indication for Abx at current time (9) Asthma: - No exacerbation - Continue Advair twice daily as needed, montelukast 10 mg daily Hospitalists will continue to follow Admission and Anticipated Discharge Date Admission Date: July 04, 2019 Subjective Reports overall feeling okay today. Has a mild headache and flushed face which she states happens with steroids. She continues to be slightly tachy but no CP or SOB. No acute findings to explain slightly faster HR. May simply be physiological/stress related. She does endorse a lot of stress at work and then with needing surgery. Also may have been from the steroids? She has not missed her Metoprolol so not rebound tachycardia. She does not feel palpitations or like it is going fast, no dizziness/lightheadedness. Will continue to monitor. Review of Systems Constitutional: no fever and no chills Ear, Nose, Mouth, Throat: + nasal congestion and + sore throat (mildly irritated); no dysphagia Respiratory: no cough, no dyspnea and no pain on inspiration Cardiovascular: no chest pain, no dyspnea, no palpitations and no lightheadedness Gastrointestinal: + constipation; no abdominal pain, no nausea, no vomiting and no diarrhea/loose stools Genitourinary: no dysuria Musculoskeletal: + back pain Integumentary: no rash +facial flushing Physical Exam Constitutional: WD/WN, vitals as above no acute distress Eyes: + anicteric sclerae ENMT: Ears: no hearing impairment Neck: trachea midline Respiratory: normal respiratory effort, lungs clear to auscultation Cardiovascular: Rate/Rhythm: regular rate and + tachycardic Heart Sounds: no murmur Vessels: no JVD Gastrointestinal (Abdomen): Inspection/Auscultation: normal bowel sounds Percussion/Palpation: abdomen soft; abdomen nontender Musculoskeletal: Head/Neck/Chest: normocephalic and head atraumatic Skin: no rashes, warm and dry Neurologic: moves all extremities Psychiatric: A+Ox3, euthymic affect Results & Data ([facility]) Vital Signs (Past 12 Hours) Vital Signs Temp Pulse Pulse Resp BP Pulse Ox 07/05/19 16:06 36.9 C 105 H 16 148/96 H 94 07/05/19 12:00 36.6 C 111 H 18 139/83 94 07/05/19 07:33 36.9 C 114 H 18 130/78 95 PG Care Time/CCT Total # of Minutes Spent Total Time Spent with Patient: Total time spent is greater than 50% in coordination of care (as documented) at patient's floor/unit and/or counseling patient: Coding Level of Care Code 19034 Inpt Consult Level 2 Diagnoses Neurogenic claudication due to lumbar spinal stenosis M48.062 Sinus tachycardia R00.0 Rheumatoid arthritis M06.9 SOB (shortness of breath) on exertion R06.02 GERD (gastroesophageal reflux disease) K21.9 Hypertension I10 Seasonal allergies J30.2 Recurrent sinus infections J32.9 Asthma J45.909
--- NOTE | 2019-07-05 17:39 | Electrocardiogram Report ---
Test Reason : Blood Pressure : / mmHG Vent. Rate : 116 BPM Atrial Rate : 116 BPM P-R Int : 144 ms QRS Dur : 088 ms QT Int : 346 ms P-R-T Axes : 040 022 008 degrees QTc Int : 480 ms Sinus tachycardia Otherwise normal ECG When compared with ECG of 19-JUN-2019 10:52, Vent. rate has increased BY 39 BPM Confirmed by Silver Lee ([id number]) on 07/05/2019 5:38:51 PM Referred By: Ari Cross Confirmed By:Silver Lee
[2019-07-05] MEDS: OXYCODONE HCL IR 5 MG TAB (IMMEDIATE RELEASE) PO PRN (20:38)
[2019-07-05] MEDS: DOCUSATE SODIUM/SENNA 50/8.6MG TAB PO SCH (21:08)
[2019-07-05] MEDS: METOPROLOL SUCC 25MG EXT REL TAB PO SCH (21:08)
[2019-07-06] MEDS: OXYCODONE HCL IR 5 MG TAB (IMMEDIATE RELEASE) PO PRN ×5 (02:02→22:20)
[2019-07-06] MEDS: TRAMADOL HCL 50 MG TABLET PO PRN ×5 (04:57→23:59)
[2019-07-06 05:59] LABS: Hematocrit (blood only) 35.5 % (37-47); Hemoglobin 11.7 g/dL (12.0-16.0); Mean Corpuscular Volume 88.1 fL (80-100); Mean Platelet Volume 9.8 fL (7.4-10.4); Platelet Count 195 K/uL (130-400); RDW Standard Deviation 45.6 fL (36.4-46.3); Red Blood Count 4.03 M/uL (4.2-5.4); White Blood Count 14.36 K/uL (4.8-10.8)
[2019-07-06 06:40] LABS: BUN Creatinine Ratio 27.1 (10-20); Calcium 8.1 mg/dl (8.5-10.1); Creatinine Clr Calc Pharmacy 131.9 ml/min; Est GFR (African American) 124.4; Est GFR (Non-African American) 107.4
[2019-07-06] MEDS: PANTOprazole 40 MG TAB PO SCH ×2 (09:03→20:19)
[2019-07-06] MEDS: FLUTICASONE PROPIONATE NA SPR 16 GM BTL SCH ×2 (09:03→20:18)
[2019-07-06] MEDS: FUROSEMIDE 20 MG TAB PO SCH (09:03)
[2019-07-06] MEDS: FEXOFENADINE HCL 180 MG TAB PO SCH (09:04)
[2019-07-06] MEDS: sulfaSALAzine 500 MG TABLET PO SCH ×2 (09:04→20:19)
[2019-07-06] MEDS: MONTELUKAST SODIUM 10 MG TABLET PO SCH (09:04)
[2019-07-06] MEDS: MULTIVITAMIN TAB PO SCH (09:04)
--- NOTE | 2019-07-06 12:22 | Hospitalist Progress Note ---
Date of Service July 06, 2019 Assessment & Plan (1) Neurogenic claudication due to lumbar spinal stenosis: - Lumbar spinal stenosis L5-S1 decompression/fusion on 07/03 - Doing well postoperatively; pain control/bowel regimen - Surgical management per primary service (2) Sinus tachycardia: - STABLE; Asymptomatic - HR < 100 today - Given lack of symptoms it is possibly she is mildly tachy at home too unless she checks her HR - EKG reveals sinus tach - no CP or SOB currently; CTA R/Od PE - She did have intraoperative steroids so maybe part of this? stress-related? pain response? movement can be more fatiguing given recent surgery - No signs to suggest infection; BP is stable - does not appear overtly dry to suggest hypovolemia response - She did not miss any metoprolol so not a rebound tachycardia - She has not been wearing her estradiol patch due to surgery - possibly some menopausal symptoms causing HR? - TSH WNL; Hgb stable - No intervention is warranted at this time, will continue to monitor (3) Rheumatoid arthritis: - Rheumatoid arthritis is controlled with sulfasalazine 1500 mg BID and Celebrex 200 mg PM - No current exacerbation - has a Prednisone pack prescribed by her provider to take post-D/C if she would start to exacerbate (4) SOB (shortness of breath) on exertion: - No complaints of SOB today - CTA R/O PE - She does have low air volumes and states she takes shallow breaths - could be contributing; encourage incentive spirometer (she reports compliance) - Oxygenation is appropriate; likely has hypoventilation syndrome - could consider outpatient sleepy study (5) GERD (gastroesophageal reflux disease): - Continue PPI (6) Hypertension: - STABLE - Continue Toprol XL 25 mg daily and Lasix 20 mg daily (7) Seasonal allergies: - Continue Lillie 180 mg daily, Flonase 2 sprays intranasally twice daily. (8) Recurrent sinus infections: As the above; no indication for Abx at current time (9) Asthma: - No exacerbation - Continue Advair twice daily as needed, montelukast 10 mg daily Recommend continuing home regimen on D/C. Patient is stable from chronic medical conditions. Hospitals can monitor peripherally. Please do not hesitate to contact us for any changes in condition or with questions. Admission and Anticipated Discharge Date Admission Date: July 04, 2019 Subjective Reports feeling well today. Pain is doing better today. Pain is mostly worse with a lot of activity. HR is better today and no SOB or CP. Tolerating diet without issue. Hoping to be able to return home today. She verbalizes no other complaints. Review of Systems Constitutional: no fever and no chills Respiratory: no cough and no dyspnea Cardiovascular: no chest pain, no palpitations and no lightheadedness Gastrointestinal: no abdominal pain, no nausea, no vomiting, no constipation and no diarrhea/loose stools Genitourinary: no dysuria Musculoskeletal: + back pain (improved today - worsens with prolonged movement) Integumentary: no rash Physical Exam Constitutional: WD/WN, vitals as above no acute distress Eyes: + anicteric sclerae ENMT: Ears: no hearing impairment Neck: trachea midline Respiratory: normal respiratory effort, lungs clear to auscultation Cardiovascular: Rate/Rhythm: regular rate and regular rhythm Heart Sounds: no murmur Vessels: no JVD Gastrointestinal (Abdomen): Inspection/Auscultation: normal bowel sounds Percussion/Palpation: abdomen soft; abdomen nontender Musculoskeletal: Head/Neck/Chest: normocephalic and head atraumatic dressing applied to surgical site C/D/I with KISHORE drain present Skin: no rashes, warm and dry Neurologic: moves all extremities Psychiatric: A+Ox3, euthymic affect Results & Data ([facility]) Vital Signs (Past 12 Hours) Vital Signs Temp Pulse Resp BP Pulse Ox 07/06/19 07:40 36.9 C 93 H 16 137/86 94 PG Care Time/CCT Total # of Minutes Spent Total Time Spent with Patient: Total time spent is greater than 50% in coordination of care (as documented) at patient's floor/unit and/or counseling patient: Coding Level of Care Code 42526 Inpt Consult Level 2 Diagnoses Neurogenic claudication due to lumbar spinal stenosis M48.062 Sinus tachycardia R00.0 Rheumatoid arthritis M06.9 SOB (shortness of breath) on exertion R06.02 GERD (gastroesophageal reflux disease) K21.9 Hypertension I10 Seasonal allergies J30.2 Recurrent sinus infections J32.9 Asthma J45.909
--- NOTE | 2019-07-06 13:27 | Orthopedic Progress Note ---
Date of Service July 06, 2019 Assessment & Plan (1) Neurogenic claudication due to lumbar spinal stenosis: Today will continue with physical therapy monitor her KISHORE output advance her bowel regimen anticipate discharge home tomorrow. Present on Admission?: Yes Admission and Anticipated Discharge Date Admission Date: July 04, 2019 Subjective Patient is noticing marked improvement of her leg symptoms. Back pain controlled. Physical Exam Physical Exam: On exam she has good strength testing appears comfortable. Results & Data ([facility]) Vital Signs (Past 12 Hours) Vital Signs Temp Pulse Resp BP Pulse Ox 07/06/19 07:40 36.9 C 93 H 16 137/86 94
[2019-07-06] MEDS ORDERED: SODIUM CHLORIDE 0.65% NA SOLN 45 ML (OCEAN) PRN (18:11)
[2019-07-06] MEDS: DOCUSATE SODIUM/SENNA 50/8.6MG TAB PO SCH (20:19)
[2019-07-06] MEDS: METOPROLOL SUCC 25MG EXT REL TAB PO SCH (20:19)
[2019-07-07] MEDS: OXYCODONE HCL IR 5 MG TAB (IMMEDIATE RELEASE) PO PRN (02:11)
[2019-07-07] MEDS: TRAMADOL HCL 50 MG TABLET PO PRN (08:49)
[2019-07-07] MEDS: sulfaSALAzine 500 MG TABLET PO SCH (08:50)
[2019-07-07] MEDS: FLUTICASONE PROPIONATE NA SPR 16 GM BTL SCH (08:50)
[2019-07-07] MEDS: MONTELUKAST SODIUM 10 MG TABLET PO SCH (08:50)
[2019-07-07] MEDS: FUROSEMIDE 20 MG TAB PO SCH (08:51)
[2019-07-07] MEDS: MULTIVITAMIN TAB PO SCH (08:51)
[2019-07-07] MEDS: FEXOFENADINE HCL 180 MG TAB PO SCH (08:51)
[2019-07-07] MEDS: PANTOprazole 40 MG TAB PO SCH (08:51)
--- NOTE | 2019-07-07 08:53 | Discharge Summary ---
Date of Service July 07, 2019 Admission HPI Per Admitting Provider This is a 43-year-old female that presents with above-mentioned diagnosis after failing extensive course of nonoperative care is here for surgical intervention. Principal Diagnosis Lumbar spinal stenosis with neurogenic claudication and spondylolisthesis L5-S1 Discharge Data Allergies Allergy/AdvReac Type Severity Reaction Status Date / Time lisinopril Allergy Unknown Rash Verified 07/04/19 09:08 abatacept [From Orencia] AdvReac Unknown Headache Verified 07/04/19 09:08 amlodipine [From Norvasc] AdvReac Unknown legs Verified 07/04/19 09:08 swelled Consultations 07/04/19 14:25 Consult Case Management - Discharge Planning Routine 07/04/19 15:42 Consult Hospitalist Routine Procedures Performed Operation Date: 07/04/19 11:15 Actual Procedures p L5-S1 Decompression and Fusion, Spinal Cord Monitoring, Application on Bone Infuse and Allograft, Placement of Interbody - Ari Cross DO Ordered Studies 07/04/19 11:15 FL fluoroscopy <1hr Routine FL lumbar spine 2-3V Routine 07/04/19 20:02 CT angio chest PE protocol Stat Hospital Course (1) Neurogenic claudication due to lumbar spinal stenosis: Patient went lumbar decompression fusion tolerated well second orthopedic for postoperative postop day #1 she was up and ambulating progressed to postop day #2 postop day 3 pain was well controlled leg pain resolved KISHORE drain decreased probably except strength testing. Subsequent discharge home. Discharge orders instructions from the chart for further review. Total Time Total Time Spent Total Time Spent (In Minutes): 20 minutes Discharge Plan Discharge Items Patient Disposition: Home - Self-Care Reason For Visit: Biochemical Lesions of Lumbar Region Discharge Diagnosis: Lumbar spinal stenosis Activity: As commented below Non-emergency contact: Primary Care Provider Call non-emergency contact if: you have any medication questions Follow-up/Referrals: Tom Whitlock [Primary Care Provider] - Diet: Regular Addtl Attending Provider Instructions: ACTIVITY RECOMMENDATIONS: SELF CARE INSTRUCTIONS AFTER THORACIC/LUMBAR FUSIONS 1. You may walk to your tolerance. It is good exercise for your legs and back. Expect some back and intermittent leg aches and pains. 2. You may perform "counter-top" level activities (make a sandwich, marbin with a project, etc.). 3. No bending or lifting of more than 10 pounds or back twisting of any nature (roll like a log when turning in bed). 4. You may ride in a car for 20-30 minutes at a time. No driving until after your first visit with your doctor. 5. Frequent changes of position and restricting sitting to 30 minutes at a time will help limit the amount of back spasms and stiffness you may experience. 6. You may discontinue the use of ambulatory aids (cane, crutches, etc.) once your strength and confidence allow. 7. You may industrial health and safety professor the shower and let water strike your incision when you arrive home at least once daily. Do not take a tub bath, sit in a hot tub or go into a swimming pool until after your first recheck in the office. SPECIAL CARE INSTRUCTIONS: VERY IMPORTANT TO READ AND REVIEW A. Your surgical incision has been closed with a cosmetic suture under the skin that will dissolve in about 6 weeks. In 14 days, you can use a pair of clean scissors and cut the suture that is left outside of the skin at the ends of your incision. 1. The small skin tapes can be removed 7 days after surgery if they have not fallen off by that point. 2. You may keep the wound open to air as much as possible to promote healing after post-op day number 5 unless told otherwise by your doctor. 3. If you think the wound looks like it is becoming infected (redness or worsening drainage) and/or you are experiencing fever, chill or worsening back pain and muscle spasms, contact the office so that we may evaluate you as soon as possible. B. Complications are uncommon, but please contact us if you have any signs or symptoms of: 1. wound infection (fever higher than 102.5 degrees F, redness, separation of wound, drainage, or increasing pain from the incision) 2. blood clots in legs (pain, swelling, redness and warmth in legs) 3. urinary tract infection (fever higher than 102.5 degrees F, burning upon urination or increased frequency of urination) 4. nerve problems (inability to walk on your toes or heels, numbness, loss of bowel or bladder control) 5. any other symptoms that concern you C. Please call the office at if you have any concerns or questions about your operation or recovery. D. No smoking! Smoking drastically decreases the chance of a solid fusion. E. Do not take any anti-inflammatory medications (Indocin, Advil, Motrin, Aspirin, Naprosyn, etc.) as these may inhibit the chance of a solid fusion. Tylenol is okay to take for pain. MANAGING PAIN AFTER SPINAL SURGERY 1. Narcotic medication is intended for short-term use and will be provided for surgical pain. Surgical pain usually lasts for a period of 4-6 weeks. Narcotic medication includes Percocet, Vicodin, Darvocet, Tylenol #3 or Lortab. 2. Longer-term pain is more appropriately treated with non-narcotic medication such as Tylenol ES. 3. Muscle spasm is not appropriately treated with narcotics. Muscle relaxers such as Soma, Flexeril or Skelaxin can be used along with Tylenol ES. 4. Remember that we all live with some "aches and pains". This is not unusual or uncommon after an injury or as we get older. a. Back pain is expected and may include muscle spasms for 4 to 6 weeks after surgery. The pain should gradually improve. If the pain worsens for no apparent reason, please contact the office. b. Intermittent leg pain may also be experienced and should not be concerned about unless it worsens for no apparent reason. If so, please contact the office. 5. We will provide appropriate medication within the normal guidelines of their prescribed use. We will also be very cautious and aware of potential abuse and extended duration of patients' medication needs. a. Pain medications are for your comfort and to assist with sleep and rest so that the tissue can heal. They are not provided in order to return to normal activity and should not be used through the day. To do so or worsening pain at night can result from ongoing tissue damage and development of tolerance to the prescribed medicine. 6. Please allow 2-3 days to process refills. Prescriptions will not be mailed but must be picked up at the office. FOLLOW UP VISIT: Keep your scheduled follow-up appointment. Any questions, please call the office at . Pending Studies at Discharge: No Stand-Alone Forms: My [facility] [employer] Mobile App, Opioid Pain Management, Smoking Cessation Medications and DC Order Prescriptions: New tramadol 50 mg tablet 50 mg PO Q6H PRN (Reason: pain, moderate) Qty: 30 RF: 0 oxycodone 5 mg tablet 5 mg PO Q6H PRN (Reason: pain, severe) Qty: 20 RF: 0 Continued multivitamin Tablet 2 tab PO QAM RF: 0 fluticasone propion-salmeterol [Advair Diskus] 250-50 mcg/dose Blister With Device 1 inh INHALATION BID PRN (Reason: Wheezing) RF: 0 estradiol 0.1 mg/24 hr Patch Semiweekly 1 patch topical 2XWK RF: 0 fexofenadine [Lillie Allergy] 180 mg Tablet 180 mg PO QAM RF: 0 omeprazole 20 mg Capsule,Delayed Release(Dr/Ec) 20 mg PO BID RF: 0 montelukast [Singulair] 10 mg Tablet 10 mg PO QAM RF: 0 furosemide [Lasix] 20 mg Tablet 20 mg PO QAM RF: 0 metoprolol succinate [Toprol XL] 25 mg Tablet Extended Release 24 Hr 25 mg PO QPM RF: 0 fluticasone propionate [Flonase Allergy Relief] 50 mcg/actuation [place],Suspension 2 spray INTRANASAL BID RF: 0 sulfasalazine 500 mg Tablet 1,500 mg PO BID RF: 0 Discontinued celecoxib [Celebrex] 200 mg Capsule 200 mg PO QPM RF: 0 Discharge Orders: Discharge Order (Routine); Ordered 07/07/19 Ordered By: Ari Rivas/Other Patient Handouts: A1C Admission Data Admit Date/Time: 07/04/19 13:08 Attending Provider: Ari Cross Admit Provider: Ari Cross Primary Care Provider: Tom Whitlock Other Providers: Braayn Sparks Other Interventions: Discharge Summary Assessment (RN) Last Done: 07/07/19 08:30
== END 2019-07-07 09:57 | disposition home or self-care (01) | DRG 455 ==
LOC: ASU 08:34 → 3E 13:08